=== PATIENT | male | born 1950 | race Hispanic/Latino ===

== ENCOUNTER 2023-07-28 11:53 | Emergency (ER) | payer MEDICARE ==
[~2023-07-28] VITALS: Ht 170.2 cm; Wt 72.6 kg
[2023-07-28 12:37] LABS: BASOPHILS # (AUTO) 0.06 K/uL (0.00-0.20); BASOPHILS % (AUTO) 1.2 % (0.0-5.0); EOSINOPHILS # (AUTO) 0.35 K/uL (0.00-0.70); EOSINOPHILS % (AUTO) 7.1 % (0.0-8.0); HEMATOCRIT 40.4 % (42-54); IMMATURE GRANULOCYTE ABSOLUTE 0.01 K/uL (0-1); LYMPHOCYTES # (AUTO) 1.3 K/uL (1.0-4.8); LYMPHOCYTES % (AUTO) 26.6 % (21.0-51.0); MEAN CORPUSCULAR HEMOGLOBIN 31.5 pg (27.0-33.0); MEAN CORPUSCULAR HGB CONC 35.1 g/dL (32.0-36.0); MEAN CORPUSCULAR VOLUME 89.6 fL (79-99); MONOCYTES # (AUTO) 0.6 K/uL (0.1-1.0); MONOCYTES % (AUTO) 12.4 % (3.0-13.0); NEUTROPHILS # (AUTO) 2.6 K/uL (1.8-7.7); NEUTROPHILS % (AUTO) 52.5 % (40.0-77.0); PLATELET COUNT (AUTO) 74 K/uL (130-400); RED BLOOD CELL COUNT(AUTO) 4.51 MIL/uL (4.50-6.20); RED CELL DISTRIBUTION WIDTH 13.6 % (11.0-15.5); WHITE BLOOD COUNT (AUTO) 4.9 K/uL (4.8-10.8)
[2023-07-28 12:53] LABS: CREATININE 0.8 mg/dL (0.5-1.5)
[2023-07-28 12:57] LABS: ALBUMIN 3.1 g/dL (3.5-5.0); BILIRUBIN,TOTAL 1.3 mg/dL (0.2-1.0); TOTAL PROTEIN, SERUM 7.9 g/dL (6.0-8.3)
[2023-07-28] MEDS ORDERED: HYDROCODONE/ACETAMINOPHEN 5/325 MG TAB PO ONE (14:00)
[2023-07-28 14:45] LABS: ADD UA MICROSCOPIC YES; APPEARANCE,URINE CLEAR (CLEAR); BILIRUBIN,URINE NEGATIVE (NEGATIVE); COLOR,URINE YELLOW (YELLOW); GLUCOSE, URINE (UA) >=1000 mg/dL (NEGATIVE); KETONES,URINE 10 mg/dL (NEGATIVE); LEUKOCYTE ESTERASE ,URINE NEGATIVE Leu/uL (NEGATIVE); NITRATE,URINE NEGATIVE (NEGATIVE); OCCULT BLOOD,URINE NEGATIVE (NEGATIVE); PH,URINE 5.5 (5.0-8.0); PROTEIN,URINE 10 mg/dL (NEGATIVE); UROBILINOGEN,URINE 0.2 mg/dL (0.2-1.0)
[2023-07-28 14:47] LABS: MUCUS,URINE RARE LPF (None Seen); SQUAMOUS EPITHELIAL CELL,UR RARE /HPF (0-2)
[2023-07-28 16:08] VITALS: BP 133/72; PULSE 75; RESP 17; O2SAT 97
[2023-07-28] MEDS ORDERED: ACET-2079 PO (17:39)
== END 2023-07-28 17:50 | disposition home or self-care (01) ==
LOC: EDH 11:53
DX: K40.90 Unilateral inguinal hernia, without obstruction or gangrene, not specified as recurrent (principal); E11.9 Type 2 diabetes mellitus without complications; I10 Essential (primary) hypertension; J44.9 Chronic obstructive pulmonary disease, unspecified; F17.200 Nicotine dependence, unspecified, uncomplicated
CPT/HCPCS: 36415; 74176; 80053; 81001; 83690; 85025

== ENCOUNTER 2023-08-25 08:37 | Observation (INO) | payer MEDICARE ==
[2023-08-24 11:41] LABS: BASOPHILS # (AUTO) 0.07 K/uL (0.00-0.20); BASOPHILS % (AUTO) 1.1 % (0.0-5.0); EOSINOPHILS # (AUTO) 0.56 K/uL (0.00-0.70); EOSINOPHILS % (AUTO) 8.9 % (0.0-8.0); HEMATOCRIT 37.8 % (42-54); IMMATURE GRANULOCYTE ABSOLUTE 0.02 K/uL (0-1); LYMPHOCYTES # (AUTO) 1.8 K/uL (1.0-4.8); MEAN CORPUSCULAR HEMOGLOBIN 31.8 pg (27.0-33.0); MEAN CORPUSCULAR HGB CONC 35.7 g/dL (32.0-36.0); MEAN CORPUSCULAR VOLUME 88.9 fL (79-99); MONOCYTES # (AUTO) 0.6 K/uL (0.1-1.0); NEUTROPHILS # (AUTO) 3.3 K/uL (1.8-7.7); NEUTROPHILS % (AUTO) 51.7 % (40.0-77.0); PLATELET COUNT (AUTO) 95 K/uL (130-400); RED BLOOD CELL COUNT(AUTO) 4.25 MIL/uL (4.50-6.20); RED CELL DISTRIBUTION WIDTH 13.4 % (11.0-15.5); WHITE BLOOD COUNT (AUTO) 6.3 K/uL (4.8-10.8)
[2023-08-24 11:50] LABS: CREATININE 0.7 mg/dL (0.5-1.5); POTASSIUM 4.2 mmol/L (3.5-5.1)
[2023-08-24 12:04] LABS: INR 1.03 (0.85-1.15); PROTHROMBIN TIME 11.9 SEC (9.6-11.6)
[2023-08-24 12:06] LABS: PARTIAL THROMBOPLASTIN TIME 27.6 SEC (26.3-35.5)
[2023-08-24 12:22] VITALS: BP 146/68; PULSE 98; RESP 18
[~2023-08-25] VITALS: Ht 170.2 cm; Wt 83.9 kg
[2023-08-25] VITALS (25 sets, daily range): BP systolic 110–152; BP diastolic 63–93; PULSE 71–87; RESP 12–19
[~2023-08-25 08:37] MED LIST: GLIP2.5T29 PO; LOSA100T59 PO; ROSU5TAB12 PO
[2023-08-25] MEDS ORDERED: 0.9%NACL 1000ML 1,000 ML IV ONE (09:51)
[2023-08-25] MEDS: CEFAZOLIN SODIUM 1 GM VIAL ONE ×2 (09:51→13:26)
[2023-08-25] MEDS ORDERED: LIDOCAINE PF 100MG/5ML (2%) SYRINGE 5ML ONE (10:52)
[2023-08-25] MEDS ORDERED: SUCCINYLCHOLINE CHLORIDE 20 MG/ML 10 ML VIAL ONE (10:52)
[2023-08-25] MEDS ORDERED: DEXAMETHASONE SOD PHOSPHATE 10MG/ML 1ML VIAL ONE (10:52)
[2023-08-25] MEDS ORDERED: MIDAZOLAM HCL 1 MG/ML 2ML VIAL ONE (10:53)
[2023-08-25] MEDS ORDERED: GLYCOPYRROLATE 1 MG/5 ML SYRINGE ONE (10:53)
[2023-08-25] MEDS ORDERED: NEOSTIGMINE 5MG/5ML SYR IV ONE (10:53)
[2023-08-25] MEDS ORDERED: ROCURONIUM 10MG/1ML SYR 10 MG/ML ML ONE (10:53)
[2023-08-25] MEDS ORDERED: ONDANSETRON 4MG INJ ONE ×2 (10:53→15:50)
[2023-08-25] MEDS ORDERED: PROPOFOL 10 MG/ML 20ML VIAL IV ONE (10:53)
[2023-08-25] MEDS ORDERED: FENTANYL CITRATE PF 50 MCG/1 ML 2ML VIAL ONE ×2 (10:54→14:23)
[2023-08-25] MEDS ORDERED: CEFAZOLIN SODIUM 1 GM VIAL ONE (12:57)
[2023-08-25] MEDS ORDERED: BUPIVACAINE/PF 0.5% 10ML VIAL ONE (12:58)
[2023-08-25] MEDS ORDERED: BUPIVACAINE/PF 0.5% 30ML VIAL ONE (12:58)
[2023-08-25] MEDS ORDERED: SUGAMMADEX SODIUM 200 MG/2 ML VIAL IV ONE (14:24)
[2023-08-25] MEDS ORDERED: MEPERIDINE-PF 25 MG/ML SYG ONE (15:51)
[2023-08-25] MEDS ORDERED: HYDROMORPHONE 1 MG INJ IVP PRN ×2 (16:30→20:30)
[2023-08-25] MEDS ORDERED: OXYCODONE/ACETAMIN 5/325MG TAB PO PRN ×2 (16:30→17:00)
[2023-08-25] MEDS ORDERED: ONDANSETRON 4MG INJ IVP PRN ×2 (16:30→17:00)
[2023-08-25] MEDS ORDERED: ACETAMINOPHEN 325 MG TAB PO PRN (16:30)
[2023-08-25] MEDS ORDERED: NALOXONE HCL 0.4 MG/1 ML ML IVP PRN (17:00)
[2023-08-25] MEDS: 0.9%NACL 1000ML 1,000 ML IV SCH (17:48)
[2023-08-25] MEDS ORDERED: GLUCAGON 1MG KIT 1 MG ML IM PRN (19:00)
[2023-08-25] MEDS ORDERED: DEXTROSE 50%-WATER 50 ML DISP.SYRIN IV PRN (19:00)
[2023-08-25] MEDS: ZOSYN 3.375GM +NS 50ML IV SCH (20:33)
[2023-08-25] MEDS: INSULIN HUMULIN R 100 UNIT/ML 3ML SQ SCH (20:43)
[2023-08-26] VITALS (9 sets, daily range): BP systolic 115–147; BP diastolic 67–81; PULSE 77–87; RESP 17–19; O2SAT 98–100
[2023-08-26 04:06] LABS: BASOPHILS # (AUTO) 0.01 K/uL (0.00-0.20); BASOPHILS % (AUTO) 0.1 % (0.0-5.0); HEMATOCRIT 34.6 % (42-54); IMMATURE GRANULOCYTE ABSOLUTE 0.02 K/uL (0-1); LYMPHOCYTES # (AUTO) 0.8 K/uL (1.0-4.8); LYMPHOCYTES % (AUTO) 12.1 % (21.0-51.0); MEAN CORPUSCULAR HEMOGLOBIN 31.7 pg (27.0-33.0); MEAN CORPUSCULAR HGB CONC 35.3 g/dL (32.0-36.0); MEAN CORPUSCULAR VOLUME 89.9 fL (79-99); MONOCYTES # (AUTO) 0.4 K/uL (0.1-1.0); MONOCYTES % (AUTO) 5.8 % (3.0-13.0); NEUTROPHILS # (AUTO) 5.6 K/uL (1.8-7.7); NEUTROPHILS % (AUTO) 81.7 % (40.0-77.0); PLATELET COUNT (AUTO) 77 K/uL (130-400); RED BLOOD CELL COUNT(AUTO) 3.85 MIL/uL (4.50-6.20); RED CELL DISTRIBUTION WIDTH 13.4 % (11.0-15.5); WHITE BLOOD COUNT (AUTO) 6.9 K/uL (4.8-10.8)
[2023-08-26 04:13] LABS: CREATININE 0.8 mg/dL (0.5-1.5); POTASSIUM 3.7 mmol/L (3.5-5.1)
[2023-08-26 04:30] LABS: HEMOGLOBIN A1C 10.4 % (4.0-6.0)
[2023-08-26] MEDS: ZOSYN 3.375GM +NS 50ML IV SCH ×3 (05:00→20:07)
[2023-08-26] MEDS: INSULIN HUMULIN R 100 UNIT/ML 3ML SQ SCH ×5 (06:33→20:51)
[2023-08-26] MEDS: LOSARTAN 50 MG TABLET PO SCH (09:30)
[2023-08-26] MEDS: 0.9%NACL 1000ML 1,000 ML IV SCH (09:32)
[2023-08-26] MEDS: LACTULOSE 20 GM/30 ML UDCUP PO PRN ×2 (10:39→21:49)
[2023-08-26] MEDS ORDERED: Rosuvastatin Calcium 5 MG PO SCH (21:00)
[2023-08-26] MEDS ORDERED: INSULIN GLARGINE 100 UNITS/ML 10 ML VIAL SQ SCH (21:00)
[2023-08-27 02:50] VITALS: BP 131/70; PULSE 85; RESP 18
[2023-08-27] MEDS: INSULIN HUMULIN R 100 UNIT/ML 3ML SQ SCH ×4 (06:16→11:43)
[2023-08-27 08:00] VITALS: BP 129/70; PULSE 78; RESP 19; O2SAT 98
[2023-08-27] MEDS: LOSARTAN 50 MG TABLET PO SCH (09:17)
[2023-08-27] MEDS: LACTULOSE 20 GM/30 ML UDCUP PO PRN (09:17)
[2023-08-27 12:00] VITALS: BP 131/73; PULSE 75; RESP 19
== END 2023-08-27 13:35 | disposition home or self-care (01) ==
LOC: DAH 08:37 → 4BH 08:38
PROVIDERS: ADMIT Internal Medicine; ATTEND Internal Medicine
DX: K40.90 Unilateral inguinal hernia, without obstruction or gangrene, not specified as recurrent (principal); I10 Essential (primary) hypertension; E11.65 Type 2 diabetes mellitus with hyperglycemia; E78.5 Hyperlipidemia, unspecified; Z79.899 Other long term (current) drug therapy; Z98.890 Other specified postprocedural states
CPT/HCPCS: 80048 ×2; 85025 ×2; 85610; 85730; 36415 ×2; 93005; 49505; 96365; 96366 ×2; 82948 ×9; 88302; 83036; 97161; 97116; 97530; A6260; G0378 ×51; G0379; A4663; J7030 ×2; A4452; A4344; J3010 ×2; J0690 ×2; J3490; J1100; J2710; J0330; J2001; J2250; J2704; J2405 ×2; J2543 ×4; J0665; J2175; J1815 ×4; A4649; C1781; A4930 ×2; A4215; A4223; A4222; A4221; G8980; G8983